=== PATIENT | male | born 1945 | race Caucasian/White ===

== ENCOUNTER → 2020-01-29 | Outpatient (CLI) | payer BC ==
--- NOTE | 2020-01-29 14:51 | KCIC ---
3 views lumbar spine without comparison for sciatica on the left side for 3 weeks. FINDINGS: There is no fracture or acute osseous abnormality identified. There is severe narrowing of the L5-S1 intervertebral disc space and there is bulky facet arthrosis throughout the lower lumbar levels. Aortic atherosclerosis is seen. There is a lamellated 2 cm calcific density projecting over the medial aspect of the right hemidiaphragm which likely represents a benign calcified granuloma. IMPRESSION: 1. No acute osseous or alignment abnormality of the lumbar spine. 2. 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 If there is clinical concern for a chemical nerve root compression, further evaluation with MRI of lumbar spine could be of benefit. Electronically signed by: Johnnie Julio MD (01/29/2020 2:48 PM) [id number]
== END ==
LOC: KCIC 11:29
PROVIDERS: ATTEND Family Medicine
DX: M47.816 Spondylosis without myelopathy or radiculopathy, lumbar region (principal)
CPT/HCPCS: 72100